=== PATIENT | male | born 1970 | race American Indian/Alaskan Native ===

== ENCOUNTER 2017-11-30 04:11 | Emergency (ER) | payer BC, MEDICAID, OTHER ==
[2017-11-30] MEDS ORDERED: Aspirin 81 MG Tab.Chew PO ONE (05:03)
[2017-11-30 05:10] LABS: ANION GAP 12.4; CHLORIDE,CL 105 mmol/L (101-111); SODIUM,NA 136 mmol/L (135-145)
--- NOTE | 2017-11-30 05:16 | EDM.PDOC ---
<Sara Deal - Last Filed: 11/30/17 08:12> ED HPI GENERAL MEDICAL PROBLEM - General Chief Complaint: Chest Pain Stated Complaint: HEART PALPITATIONS [id number] Time Seen by Provider: 11/30/17 04:20 Source of Information: Reports: Patient History Limitations: Reports: No Limitations - History of Present Illness INITIAL COMMENTS - FREE TEXT/NARRATIVE: palpitations wakening from sleep at midnight, has had for past 2 weeks increasing frequency. No SOB, epigastric radiating to mid chest. No sweats. No dizziness. Started on Losartan 2 weeks ago. New to area since May from [facility]. Now working 3 jobs, little sleep. Is being seen at [facility]. Mid-Sternal Chest Pain Score (Numeric/FACES): 9 - Related Data Allergies Allergy/AdvReac Type Severity Reaction Status Date / Time No Known Allergies Allergy Verified 11/30/17 04:19 Home Meds: Home Meds Folic Acid 1 mg PO DAILY 11/30/17 [History] Losartan [Cozaar] 12.5 mg PO DAILY 11/30/17 [History] Past Medical History HEENT History: Reports: None Cardiovascular History: Reports: Hypertension Respiratory History: Reports: None Gastrointestinal History: Reports: Cirrhosis, Colon Polyp, GI Bleed Other Gastrointestinal History: esophageal varicies Genitourinary History: Reports: None Musculoskeletal History: Reports: None Neurological History: Reports: None Psychiatric History: Reports: Addiction Endocrine/Metabolic History: Reports: None Hematologic History: Reports: None Immunologic History: Reports: None Oncologic (Cancer) History: Reports: None Dermatologic History: Reports: None - Infectious Disease History Infectious Disease History: Reports: Chicken Pox - Past Surgical History Head Surgeries/Procedures: Reports: None Social & Family History - Family History Family Medical History: Noncontributory - Tobacco Use Smoking Status *Q: Never Smoker Second Hand Smoke Exposure: No - Caffeine Use Caffeine Use: Reports: None - Recreational Drug Use Recreational Drug Use: No - Living Situation & Occupation Living situation: Reports: with Family ED ROS GENERAL - Review of Systems Review Of Systems: ROS reveals no pertinent complaints other than HPI. ED EXAM, GENERAL - Physical Exam Exam: See Below Exam Limited By: No Limitations General Appearance: Alert, No Apparent Distress, Anxious Eye Exam: Bilateral Eye: EOMI, PERRL Ears: Normal External Exam, Normal TMs Nose: Normal Inspection Throat/Mouth: Normal Inspection, Normal Lips Head: Atraumatic, Normocephalic Neck: Normal Inspection, Full Range of Motion, Lymphadenopathy (L), Lymphadenopathy (R) Respiratory/Chest: No Respiratory Distress, Lungs Clear, Normal Breath Sounds Cardiovascular: Normal Peripheral Pulses, Regular Rate, Rhythm GI/Abdominal: Normal Bowel Sounds, Soft, Tender (epigastric) Back Exam: Normal Inspection, Full Range of Motion Extremities: Normal Inspection Neurological: Alert, Oriented, Normal Cognition Psychiatric: Normal Affect, Anxious Skin Exam: Warm, Dry, Intact, Normal Color Course - Vital Signs Last Recorded V/S: Last Vital Signs Temp 37.4 C 11/30/17 07:47 Pulse 78 11/30/17 07:47 Resp 20 11/30/17 07:47 BP 138/78 11/30/17 07:47 Pulse Ox 95 11/30/17 07:47 - Orders/Labs/Meds Orders: Active Orders 24 hr Category Date Time Status EKG 12 Lead [EKG Documentation Completion] [RC] URGENT Care 11/30/17 08:40 Active EKG Documentation Completion [RC] URGENT Care 11/30/17 04:20 Active Labs: Laboratory Tests 11/30/17 11/30/17 11/30/17 Range/Units 04:45 04:45 04:45 WBC 3.0 L (5.0-10.0) 10^3/uL RBC 4.27 L (4.6-6.2) 10^6/uL Hgb 10.8 L D (14.0-18.0) g/dL Hct 34.3 L (40.0-54.0) % MCV 80.3 D (80-100) fL MCH 25.3 L (27.0-34.0) pg MCHC 31.5 L (33.0-35.0) g/dL Plt Count 58 L (150-450) 10^3/uL Neut % (Auto) 50.2 (42.2-75.2) % Lymph % (Auto) 38.6 (20.5-50.1) % [place] % (Auto) 9.5 H (2-8) % Eos % (Auto) 1.4 (1.0-3.0) % Baso % (Auto) 0.3 (0.0-1.0) % Sodium 136 (135-145) mmol/L Potassium 3.4 L (3.6-5.0) mmol/L Chloride 105 (101-111) mmol/L Carbon Dioxide 22.0 (21.0-31.0) mmol/L Anion Gap 12.4 BUN 3 L (7-18) mg/dL Creatinine 0.5 L (0.6-1.3) mg/dL Est Cr Clr Drug Dosing 188.58 mL/min Estimated GFR (MDRD) > 60 BUN/Creatinine Ratio 6.00 Glucose 175 H (74-105) mg/dL Calcium 8.1 L (8.4-10.2) mg/dl Total Bilirubin 1.1 H (0.2-1.0) mg/dL AST 70 H (10-42) IU/L ALT 38 (10-60) IU/L Alkaline Phosphatase 133 H (42-121) IU/L CK-MB (CK-2) 3.00 (0.4-4.7) ng/mL Troponin I < 0.02 (0.00-0.02) ng/ml Total Protein 8.3 H (6.7-8.2) g/dl Albumin 3.2 (3.2-5.5) g/dl Globulin 5.1 Albumin/Globulin Ratio 0.63 Amylase 62 (28-100) U/L Lipase 40 (22-51) U/L Ethyl Alcohol mg/dL 11/30/17 11/30/17 Range/Units 04:45 08:45 WBC (5.0-10.0) 10^3/uL RBC (4.6-6.2) 10^6/uL Hgb (14.0-18.0) g/dL Hct (40.0-54.0) % MCV (80-100) fL MCH (27.0-34.0) pg MCHC (33.0-35.0) g/dL Plt Count (150-450) 10^3/uL Neut % (Auto) (42.2-75.2) % Lymph % (Auto) (20.5-50.1) % [place] % (Auto) (2-8) % Eos % (Auto) (1.0-3.0) % Baso % (Auto) (0.0-1.0) % Sodium (135-145) mmol/L Potassium (3.6-5.0) mmol/L Chloride (101-111) mmol/L Carbon Dioxide (21.0-31.0) mmol/L Anion Gap BUN (7-18) mg/dL Creatinine (0.6-1.3) mg/dL Est Cr Clr Drug Dosing mL/min Estimated GFR (MDRD) BUN/Creatinine Ratio Glucose (74-105) mg/dL Calcium (8.4-10.2) mg/dl Total Bilirubin (0.2-1.0) mg/dL AST (10-42) IU/L ALT (10-60) IU/L Alkaline Phosphatase (42-121) IU/L CK-MB (CK-2) (0.4-4.7) ng/mL Troponin I < 0.02 (0.00-0.02) ng/ml Total Protein (6.7-8.2) g/dl Albumin (3.2-5.5) g/dl Globulin Albumin/Globulin Ratio Amylase (28-100) U/L Lipase (22-51) U/L Ethyl Alcohol 57 mg/dL Meds: Medications Discontinued Medications Generic Name Dose Route Start Last Admin Trade Name Freq PRN Reason Stop Dose Admin Al Hydroxide/Mg Hydroxide 30 ml 11/30/17 05:33 11/30/17 05:38 Gi Cocktail PO 11/30/17 05:34 30 ml ONETIME ONE Administration Aspirin 324 mg 11/30/17 05:03 11/30/17 05:07 Aspirin PO 11/30/17 05:04 324 mg ONETIME ONE Administration Departure - Departure Disposition: Home, Self-Care 01 Condition: Good Clinical Impression: Heart palpitations, Anxiety HTN (hypertension) Qualifiers: Hypertension type: unspecified Qualified Code(s): I10 - Essential (primary) hypertension GERD (gastroesophageal reflux disease) Qualifiers: Esophagitis presence: without esophagitis Qualified Code(s): K21.9 - Gastro- esophageal reflux disease without esophagitis Forms: ED Department Discharge Care Plan Goals: Discussed the examination, EKG, x-ray, lab, repeat EKG and repeat lab results with the patient. The patient was encouraged to follow-up with his primary care facility. If the patient has any additional symptoms or further concerns, the patient should either visit his primary care facility or return to the emergency department. <Lazaro Prieto - Last Filed: 11/30/17 09:23> Departure - Departure Time of Disposition: 09:21
[2017-11-30] MEDS ORDERED: GI Cocktail Oral Solution 30 ML PO ONE (05:33)
[2017-11-30 08:28] VITALS: BP 138/78
--- NOTE | 2017-11-30 14:11 | EKG ---
11/30/2017 - TONI ROBERTS - TIME: 08:47:00 FINDINGS: A 12-lead EKG shows normal sinus rhythm with no significant ST elevation or ST depression. Nonspecific ST-T wave changes noted on leads V1 and V2. [facility] /[id number]
--- NOTE | 2017-11-30 14:59 | EKG ---
11/30/2017- TONI ROBERTS - FINDINGS: A 12-lead EKG shows normal sinus rhythm with no significant ST elevation or ST depression. Nonspecific ST-T wave changes noted on leads V1 and V2. [facility] /[id number]
== END 2017-11-30 09:59 | disposition home or self-care (01) ==
LOC: DL.ED 04:11
DX: K21.9 Gastro-esophageal reflux disease without esophagitis (principal); R00.2 Palpitations; I10 Essential (primary) hypertension; F41.9 Anxiety disorder, unspecified
CPT/HCPCS: 36415; 71045; 80053; 82150; 82553; 83690; 84484; 85025; 93005; 93010; 99285; A9270; G0480

== ENCOUNTER 2017-12-04 20:23 | Emergency (ER) | payer OTHER ==
[2017-12-04 20:54] VITALS: BP 155/78
[2017-12-04] MEDS ORDERED: Clindamycin HCl 150 MG Cap PO ONE (21:22)
--- NOTE | 2017-12-04 21:28 | EDM.PDOC ---
ED HPI GENERAL MEDICAL PROBLEM - General Chief Complaint: Bite:Animal, Insect Stated Complaint: SCABIES? [id number] Time Seen by Provider: 12/04/17 21:23 Source of Information: Reports: Patient History Limitations: Reports: No Limitations - History of Present Illness INITIAL COMMENTS - FREE TEXT/NARRATIVE: gives few days h/o spreading sores, been using OTC cortisone and helping a bit. - Related Data Allergies Allergy/AdvReac Type Severity Reaction Status Date / Time No Known Allergies Allergy Verified 12/04/17 20:54 Home Meds: Home Meds Folic Acid 1 mg PO DAILY 11/30/17 [History] Past Medical History HEENT History: Reports: None Cardiovascular History: Reports: Hypertension Respiratory History: Reports: None Gastrointestinal History: Reports: Cirrhosis, Colon Polyp, GI Bleed Other Gastrointestinal History: esophageal varicies Genitourinary History: Reports: None Musculoskeletal History: Reports: None Neurological History: Reports: None Psychiatric History: Reports: Addiction Endocrine/Metabolic History: Reports: None Hematologic History: Reports: None Immunologic History: Reports: None Oncologic (Cancer) History: Reports: None Dermatologic History: Reports: None - Infectious Disease History Infectious Disease History: Reports: Chicken Pox - Past Surgical History Head Surgeries/Procedures: Reports: None Social & Family History - Family History Family Medical History: Noncontributory - Tobacco Use Smoking Status *Q: Never Smoker Second Hand Smoke Exposure: No - Caffeine Use Caffeine Use: Reports: None - Recreational Drug Use Recreational Drug Use: No - Living Situation & Occupation Living situation: Reports: with Family ED ROS GENERAL - Review of Systems Review Of Systems: ROS reveals no pertinent complaints other than HPI. ED EXAM, ANIMAL BITE - Physical Exam Exam: See Below Exam Limited By: No Limitations General Appearance: Alert, WD/WN, No Apparent Distress Ears: Hearing Grossly Normal Throat/Mouth: Normal Voice, No Airway Compromise Head: Atraumatic Neck: Non-Tender, Full Range of Motion Respiratory/Chest: No Respiratory Distress Cardiovascular: Regular Rate, Rhythm GI/Abdominal: Soft, Non-Tender Neurological: Alert, Oriented, Normal Cognition, Normal Gait, No Motor/Sensory Deficits Psychiatric: Normal Affect, Normal Mood Skin Exam: Normal Color, Warm/Dry, Other (scatttered areas of some solitary some confluent erythematous rash in varying sizes 1/2" to 1" on arm & legs) Course - Vital Signs Last Recorded V/S: Last Vital Signs Temp 37.1 C 12/04/17 20:51 Pulse 97 12/04/17 20:51 Resp 18 12/04/17 20:51 BP 155/78 H 12/04/17 20:51 Pulse Ox 97 12/04/17 20:51 - Orders/Labs/Meds Orders: Active Orders 24 hr Category Date Time Status Clindamycin HCl [Cleocin] Med 12/04/17 21:22 Once 150 mg PO ONETIME ONE Departure - Departure Time of Disposition: 21:28 Disposition: Home, Self-Care 01 Condition: Good Clinical Impression: Bug bite Qualifiers: Encounter type: initial encounter Qualified Code(s): W57.XXXA - Bitten or stung by nonvenomous insect and other nonvenomous arthropods, initial encounter - Discharge Information Instructions: Insect Bite, Adult, [id number] Additional Instructions: 1) don't scratch 2) continue cortisone cream 3) see clinic tomorrow for DERMATOLOGY REFERRAL rx given; clindamycin 150mg qid x 40 - My Orders Last 24 Hours: My Active Orders 12/04/17 21:22 Clindamycin HCl [Cleocin] 150 mg PO ONETIME ONE - Assessment/Plan Last 24 Hours: My Active Orders 12/04/17 21:22 Clindamycin HCl [Cleocin] 150 mg PO ONETIME ONE
== END 2017-12-04 21:33 | disposition home or self-care (01) ==
LOC: DL.ED 20:23
DX: S40.862A Insect bite (nonvenomous) of left upper arm, initial encounter (principal); S40.861A Insect bite (nonvenomous) of right upper arm, initial encounter; S80.862A Insect bite (nonvenomous), left lower leg, initial encounter; S80.861A Insect bite (nonvenomous), right lower leg, initial encounter; W57.XXXA Bitten or stung by nonvenomous insect and other nonvenomous arthropods, initial encounter; I10 Essential (primary) hypertension
CPT/HCPCS: 99282; A9270; 99283

== ENCOUNTER 2018-01-13 07:34 | Emergency (ER) | payer OTHER ==
[2018-01-13] MEDS ORDERED: Sodium Chloride 0.9% 1,000 ML IV SCH (07:45)
[2018-01-13] MEDS ORDERED: Pantoprazole 40 MG Vial IVPUSH ONE (07:45)
[2018-01-13] MEDS ORDERED: Ondansetron 4 MG/2 ML SDV IV ONE (07:45)
[2018-01-13 07:48] VITALS: BP 141/85
[2018-01-13 08:18] LABS: ANION GAP 14.2; CHLORIDE,CL 99 mmol/L (101-111); SODIUM,NA 134 mmol/L (135-145)
--- NOTE | 2018-01-13 08:23 | EDM.PDOC ---
ED HPI GENERAL MEDICAL PROBLEM - General Chief Complaint: Chest Pain Stated Complaint: VOMITTING BLOOD, HEART HURTS Time Seen by Provider: 01/13/18 08:05 Source of Information: Reports: Patient History Limitations: Reports: No Limitations - History of Present Illness INITIAL COMMENTS - FREE TEXT/NARRATIVE: This 47 yo male patient reports to the ED due to right sided chest pain for 1 week, not feeling well, and vomiting blood this morning. The patient reports that he has not attempted to get into his primary care facility for the chest pain. The patient reports the not feeling well could be due to a diffuse upper abdominal pain. The patient report that his upper abdominal pain has stopped him from eating much in the past week. The patient also reports that he has had increased stress in his life due to his great uncle passing away. The patient reports that he vomited some "red" blood this morning. The patient states that he has been seen for varices in the past. The patient admits to drinking some ETOH this past week. The patient reports that he has a history of esophageal varices, liver problems, and low platelet counts. The patient reports that he is supposed to be seen in [place] to look for any evidence of Rheumatoid. Onset: Today (vomiting blood) Duration: Week(s): (1 week of chest pain/pressure) Location: Reports: Chest, Abdomen Quality: Reports: Ache (upper abdomen), Dull, Pressure (chest) Severity: Moderate Improves with: Reports: None Worsens with: Reports: None Associated Symptoms: Reports: Cough, Nausea/Vomiting Chest Pain Score (Numeric/FACES): 8 - Related Data Allergies Allergy/AdvReac Type Severity Reaction Status Date / Time No Known Allergies Allergy Verified 01/13/18 07:42 Home Meds: Home Meds Cholecalciferol (Vitamin D3) [Vitamin D] 5,000 unit PO DAILY 01/13/18 [History] amLODIPine Besylate [Amlodipine Besylate] 5 mg PO DAILY 01/13/18 [History] Past Medical History HEENT History: Reports: None Cardiovascular History: Reports: Hypertension Respiratory History: Reports: None Gastrointestinal History: Reports: Cirrhosis, Colon Polyp, GI Bleed Other Gastrointestinal History: esophageal varicies Genitourinary History: Reports: None Musculoskeletal History: Reports: None Neurological History: Reports: None Psychiatric History: Reports: Addiction Endocrine/Metabolic History: Reports: None Hematologic History: Reports: Anemia Immunologic History: Reports: None Oncologic (Cancer) History: Reports: None Dermatologic History: Reports: None - Infectious Disease History Infectious Disease History: Reports: Chicken Pox, Hepatitis C - Past Surgical History Head Surgeries/Procedures: Reports: None Social & Family History - Family History Family Medical History: Noncontributory - Tobacco Use Smoking Status *Q: Never Smoker - Caffeine Use Caffeine Use: Reports: None - Recreational Drug Use Recreational Drug Use: No - Living Situation & Occupation Living situation: Reports: with Family ED ROS GENERAL - Review of Systems Review Of Systems: ROS reveals no pertinent complaints other than HPI. ED EXAM, GENERAL - Physical Exam Exam: See Below Exam Limited By: No Limitations General Appearance: Alert, WD/WN, Moderate Distress Eye Exam: Bilateral Eye: EOMI, Normal Inspection, PERRL Ears: Normal External Exam, Normal Canal, Hearing Grossly Normal, Normal TMs Nose: Normal Inspection, Normal Mucosa, No Blood Throat/Mouth: Normal Inspection, Normal Lips, Normal Teeth, Normal Gums, Normal Oropharynx, Normal Voice, No Airway Compromise Head: Atraumatic, Normocephalic Neck: Normal Inspection, Supple, Non-Tender, Full Range of Motion Respiratory/Chest: No Respiratory Distress, No Accessory Muscle Use, Chest Non- Tender, Decreased Breath Sounds, Rhonchi Cardiovascular: Normal Peripheral Pulses, Regular Rate, Rhythm, No Edema, No Gallop, No JVD, No Murmur, No Rub GI/Abdominal: Tender (upper abdomen) (Male) Exam: Deferred Rectal (Males) Exam: Deferred Back Exam: Normal Inspection, Full Range of Motion, NT Extremities: Normal Inspection, Normal Range of Motion, Non-Tender, Normal Capillary Refill, No Pedal Edema Neurological: Alert, Oriented, CN II-XII Intact, Normal Cognition, Normal Gait, Normal Reflexes, No Motor/Sensory Deficits Psychiatric: Normal Affect, Normal Mood Skin Exam: Warm, Dry, Intact, Normal Color, No Rash Lymphatic: No Adenopathy Course - Vital Signs Last Recorded V/S: Last Vital Signs Temp 37.1 C 01/13/18 07:44 Pulse 94 01/13/18 07:44 Resp 16 01/13/18 07:44 BP 141/85 H 01/13/18 07:44 Pulse Ox 99 01/13/18 07:44 - Orders/Labs/Meds Orders: Active Orders 24 hr Category Date Time Status EKG Documentation Completion [RC] URGENT Care 01/13/18 07:39 Active Chest 1V Frontal [CR] Urgent Exams 01/13/18 07:39 Ordered UA W/MICROSCOPIC [URIN] Stat Lab 01/13/18 07:39 Ordered Sodium Chloride 0.9% [Normal Saline] 1,000 ml Med 01/13/18 07:45 Active IV ASDIRECTED Medication Orders Sodium Chloride (Normal Saline) 1,000 mls @ 125 mls/hr IV ASDIRECTED DENYS Last Admin: 01/13/18 08:17 Dose: 125 mls/hr Labs: Laboratory Tests 01/13/18 01/13/18 01/13/18 Range/Units 07:50 07:50 07:50 WBC 3.7 L (5.0-10.0) 10^3/uL RBC 4.16 L (4.6-6.2) 10^6/uL Hgb 10.9 L (14.0-18.0) g/dL Hct 33.5 L (40.0-54.0) % MCV 80.5 (80-100) fL MCH 26.2 L (27.0-34.0) pg MCHC 32.5 L (33.0-35.0) g/dL Plt Count 38 L* (150-450) 10^3/uL Neut % (Auto) 57.5 (42.2-75.2) % Lymph % (Auto) 32.8 (20.5-50.1) % [place] % (Auto) 8.1 H (2-8) % Eos % (Auto) 1.3 (1.0-3.0) % Baso % (Auto) 0.3 (0.0-1.0) % Sodium (135-145) mmol/L Potassium (3.6-5.0) mmol/L Chloride (101-111) mmol/L Carbon Dioxide (21.0-31.0) mmol/L Anion Gap BUN (7-18) mg/dL Creatinine (0.6-1.3) mg/dL Est Cr Clr Drug Dosing mL/min Estimated GFR (MDRD) BUN/Creatinine Ratio Glucose (74-105) mg/dL Calcium (8.4-10.2) mg/dl Total Bilirubin (0.2-1.0) mg/dL AST (10-42) IU/L ALT (10-60) IU/L Alkaline Phosphatase (42-121) IU/L Ammonia 101 H (11-35) umol/L Troponin I (0.00-0.02) ng/ml Total Protein (6.7-8.2) g/dl Albumin (3.2-5.5) g/dl Globulin Albumin/Globulin Ratio Amylase 64 (28-100) U/L Lipase 56 H (22-51) U/L Urine Opiates Screen (NEGATIVE) Ur Oxycodone Screen (NEGATIVE) Urine Methadone Screen (NEGATIVE) Ur Barbiturates Screen (NEGATIVE) U Tricyclic Antidepress (NEGATIVE) Ur Phencyclidine Scrn (NEGATIVE) Ur Amphetamine Screen (NEGATIVE) U Methamphetamines Scrn (NEGATIVE) Urine MDMA Screen (NEGATIVE) U Benzodiazepines Scrn (NEGATIVE) Urine Cocaine Screen (NEGATIVE) U Marijuana (THC) Screen (NEGATIVE) Ethyl Alcohol 94 mg/dL 01/13/18 01/13/18 Range/Units 07:50 09:00 WBC (5.0-10.0) 10^3/uL RBC (4.6-6.2) 10^6/uL Hgb (14.0-18.0) g/dL Hct (40.0-54.0) % MCV (80-100) fL MCH (27.0-34.0) pg MCHC (33.0-35.0) g/dL Plt Count (150-450) 10^3/uL Neut % (Auto) (42.2-75.2) % Lymph % (Auto) (20.5-50.1) % [place] % (Auto) (2-8) % Eos % (Auto) (1.0-3.0) % Baso % (Auto) (0.0-1.0) % Sodium 134 L (135-145) mmol/L Potassium 3.2 L (3.6-5.0) mmol/L Chloride 99 L (101-111) mmol/L Carbon Dioxide 24.0 (21.0-31.0) mmol/L Anion Gap 14.2 BUN 5 L (7-18) mg/dL Creatinine 0.6 (0.6-1.3) mg/dL Est Cr Clr Drug Dosing 157.15 mL/min Estimated GFR (MDRD) > 60 BUN/Creatinine Ratio 8.33 Glucose 179 H (74-105) mg/dL Calcium 7.8 L (8.4-10.2) mg/dl Total Bilirubin 2.2 H (0.2-1.0) mg/dL AST 221 H (10-42) IU/L ALT 79 H (10-60) IU/L Alkaline Phosphatase 175 H (42-121) IU/L Ammonia (11-35) umol/L Troponin I < 0.02 (0.00-0.02) ng/ml Total Protein 8.4 H (6.7-8.2) g/dl Albumin 3.2 (3.2-5.5) g/dl Globulin 5.2 Albumin/Globulin Ratio 0.62 Amylase (28-100) U/L Lipase (22-51) U/L Urine Opiates Screen Negative (NEGATIVE) Ur Oxycodone Screen Negative (NEGATIVE) Urine Methadone Screen Negative (NEGATIVE) Ur Barbiturates Screen Negative (NEGATIVE) U Tricyclic Antidepress Negative (NEGATIVE) Ur Phencyclidine Scrn Negative (NEGATIVE) Ur Amphetamine Screen Negative (NEGATIVE) U Methamphetamines Scrn Negative (NEGATIVE) Urine MDMA Screen Negative (NEGATIVE) U Benzodiazepines Scrn Negative (NEGATIVE) Urine Cocaine Screen Negative (NEGATIVE) U Marijuana (THC) Screen Negative (NEGATIVE) Ethyl Alcohol mg/dL Meds: Medications Generic Name Dose Route Start Last Admin Trade Name Freq PRN Reason Stop Dose Admin Sodium Chloride 1,000 mls @ 125 mls/hr 01/13/18 07:45 01/13/18 08:17 Normal Saline IV 125 mls/hr ASDIRECTED DENYS Administration Discontinued Medications Generic Name Dose Route Start Last Admin Trade Name Freq PRN Reason Stop Dose Admin Ondansetron HCl 4 mg 01/13/18 07:45 01/13/18 08:18 Zofran IV 01/13/18 07:46 4 mg ONETIME ONE Administration Pantoprazole Sodium 40 mg 01/13/18 07:45 01/13/18 08:18 Protonix Iv IVPUSH 01/13/18 07:46 40 mg ONETIME ONE Administration Departure - Departure Time of Disposition: : Disposition: DC/Tfer to Acute Hospital 02 Condition: Fair Clinical Impression: Chest pressure Hematemesis Qualifiers: Nausea presence: with nausea Qualified Code(s): K92.0 - Hematemesis - Discharge Information *PRESCRIPTION DRUG MONITORING PROGRAM REVIEWED*: Not Applicable *COPY OF PRESCRIPTION DRUG MONITORING REPORT IN PATIENT AMNA: Not Applicable Forms: Interfacility Transfer EMTALA Care Plan Goals: Discussed the examination, history, lab, EKG and x-ray results with Dr. Smith ( [facility] in [place]). Dr. Smith accepted the patient for continued evaluation and further treatment. The patient will be transported by [facility]. - My Orders Last 24 Hours: My Active Orders 01/13/18 07:39 EKG Documentation Completion [RC] URGENT Chest 1V Frontal [CR] Urgent UA W/MICROSCOPIC [URIN] Stat 01/13/18 07:45 Sodium Chloride 0.9% [Normal Saline] 1,000 ml IV ASDIRECTED - Assessment/Plan Last 24 Hours: My Active Orders 01/13/18 07:39 EKG Documentation Completion [RC] URGENT Chest 1V Frontal [CR] Urgent UA W/MICROSCOPIC [URIN] Stat 01/13/18 07:45 Sodium Chloride 0.9% [Normal Saline] 1,000 ml IV ASDIRECTED
--- NOTE | 2018-01-13 09:28 | CR ---
Clinical history: 47-year-old male chest pain. Interpretation: No acute new cardiopulmonary abnormality since upright AP portable chest film 30 November 2017. 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 Mild scoliosis and ectasia dorsal aorta. No lung mass, hilar lymphadenopathy or focal lobar pneumonia.
== END 2018-01-13 09:55 ==
LOC: DL.ED 07:34
DX: R07.89 Other chest pain (principal); K92.0 Hematemesis; I10 Essential (primary) hypertension; Z79.899 Other long term (current) drug therapy
CPT/HCPCS: 36415; 71045; 80053; 80305; 81001; 82140; 82150; 83690; 84484; 85025; 85610; 93005; 96361; 96374; 96375; 99285; C9113; G0480; J2405; J7030; 99284

== ENCOUNTER 2019-01-21 07:04 | Emergency (ER) | payer OTHER ==
[2019-01-21] MEDS ORDERED: Sodium Chloride 0.9% 10 ML Syringe FLUSH PRN (07:15)
[2019-01-21] MEDS ORDERED: Ondansetron 4 MG/2 ML SDV IV ONE (07:21)
[2019-01-21] MEDS ORDERED: Sodium Chloride 0.9% 1,000 ML IV ONE (07:21)
[2019-01-21] MEDS ORDERED: Pantoprazole 40 MG Vial IVPUSH ONE (07:21)
--- NOTE | 2019-01-21 07:22 | EDM.PDOC ---
ED HPI GENERAL MEDICAL PROBLEM - General Chief Complaint: Gastrointestinal Problem Stated Complaint: VOMITING BLOOD Time Seen by Provider: 01/21/19 07:22 Source of Information: Reports: Patient, Old Records, RN, RN Notes Reviewed History Limitations: Reports: No Limitations - History of Present Illness INITIAL COMMENTS - FREE TEXT/NARRATIVE: Pt presents to ER from home by POV with c/o nausea with upper abdominal pain and vomiting of bloody emesis. Pt states that he is under a great deal of stress at his job and has been working long hours. He was seen here on 01/13/19 for an upper GI bleed and was transferred to [facility] in [place]. Pt states he has had both blood in his emesis and some intermittent black stools. He states he has not been able to eat or drink much for the past 2 days. He admits to 3 weeks of bloody noses and dizziness. Pt reports Hx of cirrhosis with esophageal varices, but he still drinks wine about twice a week. Pt states he is here primarily so he can be transferred to [facility] in [place]. Onset: Today Duration: Chronic, Constant, Recurring Location: Reports: Abdomen Quality: Reports: Ache Severity: Moderate Improves with: Reports: None Worsens with: Reports: None Associated Symptoms: Reports: No Other Symptoms Left Abdominal Pain Score (Numeric/FACES): 8 - Related Data Allergies Allergy/AdvReac Type Severity Reaction Status Date / Time No Known Allergies Allergy Verified 01/13/18 07:42 Home Meds: Home Meds Cholecalciferol (Vitamin D3) [Vitamin D] 5,000 unit PO DAILY 01/13/18 [History] amLODIPine Besylate [Amlodipine Besylate] 5 mg PO DAILY 01/13/18 [History] Past Medical History HEENT History: Reports: None Cardiovascular History: Reports: Hypertension Respiratory History: Reports: None Gastrointestinal History: Reports: Cirrhosis, Colon Polyp, GI Bleed Other Gastrointestinal History: esophageal varicies Genitourinary History: Reports: None Musculoskeletal History: Reports: None Neurological History: Reports: None Psychiatric History: Reports: Addiction Endocrine/Metabolic History: Reports: None Hematologic History: Reports: Anemia Immunologic History: Reports: None Oncologic (Cancer) History: Reports: None Dermatologic History: Reports: None - Infectious Disease History Infectious Disease History: Reports: Chicken Pox, Hepatitis C - Past Surgical History Head Surgeries/Procedures: Reports: None Social & Family History - Family History Family Medical History: Noncontributory - Caffeine Use Caffeine Use: Reports: None - Living Situation & Occupation Living situation: Reports: with Family Occupation: Employed ED ROS GENERAL - Review of Systems Review Of Systems: ROS reveals no pertinent complaints other than HPI. ED EXAM, GI/ABD - Physical Exam Exam: See Below Exam Limited By: No Limitations General Appearance: Alert, No Apparent Distress, Other (Chronically ill appearing) Eyes: Bilateral: Normal Appearance (No scleral icterus) Nose: Normal Inspection, Normal Mucosa, No Blood Throat/Mouth: Normal Inspection, Normal Lips, Normal Voice, No Airway Compromise Head: Atraumatic, Normocephalic Neck: Normal Inspection, Full Range of Motion Respiratory/Chest: No Respiratory Distress, Lungs Clear, No Accessory Muscle Use , Chest Non-Tender, Decreased Breath Sounds Cardiovascular: Regular Rate, Rhythm GI/Abdominal Exam: Normal Bowel Sounds, Soft, No Distention, Tender (Epigastric tenderness). No: Guarding, Rigid, Rebound (Male) Exam: Deferred Rectal (Males) Exam: Heme - Stool Back Exam: Normal Inspection Extremities: Normal Inspection, Normal Range of Motion, Non-Tender, No Pedal Edema, Normal Capillary Refill Neurological: Alert, Oriented, CN II-XII Intact, Normal Cognition, No Motor/ Sensory Deficits Psychiatric: Normal Affect, Normal Mood Skin Exam: Warm, Dry, Intact, Normal Color, No Rash EKG INTERPRETATION EKG Date: 01/21/19 Time: 07:11 Rhythm: Other (SR) Rate (Beats/Min): 97 [place]: Normal P-Wave: Present QRS: Wide (nonspecific IVCD) ST-T: Normal QT: Normal Comparison: NA - No Prior EKG Course - Vital Signs Last Recorded V/S: Last Vital Signs Temp 98.6 F 01/21/19 07:16 Pulse Resp 18 01/21/19 07:16 BP 186/107 H 01/21/19 07:16 Pulse Ox 96 01/21/19 07:16 - Orders/Labs/Meds Orders: Active Orders 24 hr Category Date Time Status EKG 12 Lead [EKG Documentation Completion] [RC] STAT Care 01/21/19 07:13 Active Peripheral IV Care [RC] . DIRECTED Care 01/21/19 07:15 Active Chest 1V Frontal [CR] Stat Exams 01/21/19 07:13 Ordered DRUG SCREEN URINE BIORAD [URCHEM] Stat Lab 01/21/19 07:14 Ordered UA RFX SAMI AND CULT IF INDIC [URIN] Stat Lab 01/21/19 07:15 Ordered Sodium Chloride 0.9% [Normal Saline] 1,000 ml Med 01/21/19 07:21 Active IV .BOLUS Sodium Chloride 0.9% [Saline Flush] Med 01/21/19 07:15 Active 10 ml FLUSH ASDIRECTED PRN Peripheral IV Insertion Adult [OM.PC] Stat Oth 01/21/19 07:13 Ordered Medication Orders Sodium Chloride (Normal Saline) 1,000 mls @ 999 mls/hr IV .BOLUS ONE Stop: 01/21/19 08:21 Last Admin: 01/21/19 07:32 Dose: 999 mls/hr Sodium Chloride (Saline Flush) 10 ml FLUSH ASDIRECTED PRN PRN Reason: Keep Vein Open Last Admin: 01/21/19 07:32 Dose: 10 ml Labs: Laboratory Tests 01/21/19 01/21/19 01/21/19 Range/Units 07:17 07:19 07:19 WBC 4.7 L (5.0-10.0) 10^3/uL RBC 4.54 L (4.6-6.2) 10^6/uL Hgb 14.8 D (14.0-18.0) g/dL Hct 43.3 (40.0-54.0) % MCV 95.4 D (80-100) fL MCH 32.6 (27.0-34.0) pg MCHC 34.2 (33.0-35.0) g/dL Plt Count 62 L (150-450) 10^3/uL Neut % (Auto) 39.0 L (42.2-75.2) % Lymph % (Auto) 47.1 (20.5-50.1) % [place] % (Auto) 11.6 H (2-8) % Eos % (Auto) 1.7 (1.0-3.0) % Baso % (Auto) 0.6 (0.0-1.0) % PT 12.7 H (9.0-12.0) SEC INR 1.3 H (0.9-1.2) APTT 31.2 (22.0-34.0) SEC Sodium 138 (135-145) mmol/L Potassium 3.3 L (3.6-5.0) mmol/L Chloride 106 (101-111) mmol/L Carbon Dioxide 22.0 (21.0-31.0) mmol/L Anion Gap 13.3 BUN 4 L (7-18) mg/dL Creatinine 0.5 L (0.6-1.3) mg/dL Est Cr Clr Drug Dosing 189.49 mL/min Estimated GFR (MDRD) > 60 BUN/Creatinine Ratio 8.00 Glucose 182 H (74-105) mg/dL Calcium 7.5 L (8.4-10.2) mg/dl Total Bilirubin 2.3 H (0.2-1.0) mg/dL AST 143 H (10-42) IU/L ALT 57 (10-60) IU/L Alkaline Phosphatase 160 H (42-121) IU/L Ammonia (11-35) umol/L Troponin I < 0.02 (0.00-0.02) ng/ml Total Protein 8.8 H (6.7-8.2) g/dl Albumin 3.0 L (3.2-5.5) g/dl Globulin 5.8 Albumin/Globulin Ratio 0.52 Amylase 96 (28-100) U/L Lipase 88 H (22-51) U/L 01/21/19 Range/Units 07:19 WBC (5.0-10.0) 10^3/uL RBC (4.6-6.2) 10^6/uL Hgb (14.0-18.0) g/dL Hct (40.0-54.0) % MCV (80-100) fL MCH (27.0-34.0) pg MCHC (33.0-35.0) g/dL Plt Count (150-450) 10^3/uL Neut % (Auto) (42.2-75.2) % Lymph % (Auto) (20.5-50.1) % [place] % (Auto) (2-8) % Eos % (Auto) (1.0-3.0) % Baso % (Auto) (0.0-1.0) % PT (9.0-12.0) SEC INR (0.9-1.2) APTT (22.0-34.0) SEC Sodium (135-145) mmol/L Potassium (3.6-5.0) mmol/L Chloride (101-111) mmol/L Carbon Dioxide (21.0-31.0) mmol/L Anion Gap BUN (7-18) mg/dL Creatinine (0.6-1.3) mg/dL Est Cr Clr Drug Dosing mL/min Estimated GFR (MDRD) BUN/Creatinine Ratio Glucose (74-105) mg/dL Calcium (8.4-10.2) mg/dl Total Bilirubin (0.2-1.0) mg/dL AST (10-42) IU/L ALT (10-60) IU/L Alkaline Phosphatase (42-121) IU/L Ammonia 50 H (11-35) umol/L Troponin I (0.00-0.02) ng/ml Total Protein (6.7-8.2) g/dl Albumin (3.2-5.5) g/dl Globulin Albumin/Globulin Ratio Amylase (28-100) U/L Lipase (22-51) U/L Meds: Medications Generic Name Dose Route Start Last Admin Trade Name Freq PRN Reason Stop Dose Admin Sodium Chloride 1,000 mls @ 999 mls/hr 01/21/19 07:21 01/21/19 07:32 Normal Saline IV 01/21/19 08:21 999 mls/hr .BOLUS ONE Administration Sodium Chloride 10 ml 01/21/19 07:15 01/21/19 07:32 Saline Flush FLUSH 10 ml ASDIRECTED PRN Administration Keep Vein Open Discontinued Medications Generic Name Dose Route Start Last Admin Trade Name Freq PRN Reason Stop Dose Admin Ondansetron HCl 4 mg 01/21/19 07:21 01/21/19 07:29 Zofran IV 01/21/19 07:22 4 mg ONETIME ONE Administration Pantoprazole Sodium 80 mg 01/21/19 07:21 01/21/19 07:27 Protonix Iv IVPUSH 01/21/19 07:22 80 mg .BOLUS ONE Administration - Radiology Interpretation Free Text/Narrative:: [facility] [place] [facility] Final Radiology Report Call: [phone] assistance Online chat: [email or web address] Name: TONI ROBERTS Age: 48Years M Date: 01/21/2019 SSN: -- : [id number] Study: XR CHEST 1 VIEW FRONTAL Requesting Physician: YOVANI PERKINS Images: 1 Addl Studies: Provided Clinical History: Contrast: Contrast Medium: Contrast Amount: Contrast Method: CONFIDENTIALITY STATEMENT This report is intended only for use by the referring physician, and only in accordance with law. If you received this in error, call [phone]. Page 1 of 1 PROCEDURE INFORMATION: Exam: XR Chest, 1 View Exam date and time: 01/21/2019 7:39 AM Clinical history: 48 years old, male; Chest pain TECHNIQUE: Imaging protocol: XR of the chest Views: 1 view. COMPARISON: CR Chest 1V Frontal 01/13/2018 8:12 AM FINDINGS: Lungs: Mid inspiratory effort with resultant low lung volumes. No confluent infiltrates are visualized within the pulmonary parenchyma. Pleural space: Unremarkable. No pleural effusion. No pneumothorax. Heart/Mediastinum: Unremarkable. No cardiomegaly. Bones/joints: Unremarkable. IMPRESSION: No acute findings. Thank you for allowing us to participate in the care of your patient. Dictated and Authenticated by: Momo Hay MD 01/21/2019 7:58 AM Central Time ([place] & [place]) Departure - Departure Time of Disposition: 08:08 Disposition: Home, Self-Care 01 Condition: Good Clinical Impression: Gastritis Qualifiers: Gastritis type: unspecified gastritis Chronicity: acute Gastritis bleeding: without bleeding Qualified Code(s): K29.00 - Acute gastritis without bleeding - Discharge Information *PRESCRIPTION DRUG MONITORING PROGRAM REVIEWED*: Not Applicable *COPY OF PRESCRIPTION DRUG MONITORING REPORT IN PATIENT AMNA: Not Applicable Instructions: Gastritis, Adult, [id number] Forms: ED Department Discharge Additional Instructions: Rx: Omeprazole 20mg Rx: Zofran 4mg Soft bland diet. Avoid spicy foods and alcohol. Follow up in clinic in 2 to 3 days for recheck. - My Orders Last 24 Hours: My Active Orders 01/21/19 07:13 EKG 12 Lead [EKG Documentation Completion] [RC] STAT Chest 1V Frontal [CR] Stat Peripheral IV Insertion Adult [OM.PC] Stat 01/21/19 07:14 DRUG SCREEN URINE BIORAD [URCHEM] Stat 01/21/19 07:15 Peripheral IV Care [RC] . DIRECTED UA RFX SAMI AND CULT IF INDIC [URIN] Stat Sodium Chloride 0.9% [Saline Flush] 10 ml FLUSH ASDIRECTED PRN 01/21/19 07:21 Sodium Chloride 0.9% [Normal Saline] 1,000 ml IV .BOLUS - Assessment/Plan Last 24 Hours: My Active Orders 01/21/19 07:13 EKG 12 Lead [EKG Documentation Completion] [RC] STAT Chest 1V Frontal [CR] Stat Peripheral IV Insertion Adult [OM.PC] Stat 01/21/19 07:14 DRUG SCREEN URINE BIORAD [URCHEM] Stat 01/21/19 07:15 Peripheral IV Care [RC] . DIRECTED UA RFX SAMI AND CULT IF INDIC [URIN] Stat Sodium Chloride 0.9% [Saline Flush] 10 ml FLUSH ASDIRECTED PRN 01/21/19 07:21 Sodium Chloride 0.9% [Normal Saline] 1,000 ml IV .BOLUS
[2019-01-21 07:24] VITALS: BP 186/107
[2019-01-21 07:50] LABS: ANION GAP 13.3; CHLORIDE,CL 106 mmol/L (101-111); SODIUM,NA 138 mmol/L (135-145)
== END 2019-01-21 08:16 | disposition home or self-care (01) ==
LOC: DL.ED 07:04
DX: K29.00 Acute gastritis without bleeding (principal); I10 Essential (primary) hypertension; Z79.899 Other long term (current) drug therapy
CPT/HCPCS: 36415; 71045; 80053; 82140; 82150; 82272; 83690; 84484; 85025; 85610; 85730; 93005; 96365; 96375; 99284; C9113; J2405; J7030

== ENCOUNTER 2019-01-30 14:27 | Emergency (ER) | payer OTHER ==
[2019-01-30 14:48] VITALS: BP 107/89; PULSE 97
--- NOTE | 2019-01-30 15:09 | EDM.PDOC ---
ED HPI GENERAL MEDICAL PROBLEM - General Stated Complaint: LOSS OF BLOOD Time Seen by Provider: 01/30/19 15:04 Source of Information: Reports: Patient History Limitations: Reports: No Limitations - History of Present Illness INITIAL COMMENTS - FREE TEXT/NARRATIVE: This 48 yo male patient reports to the ED due to blood in his stool. The patient reports he has been having bloody stools all day today (going from bright red blood to dark red blood). The patient reports he has been experiencing increased stress at work and has been very tired lately. The patient reports he does drink wine, but has not had any in the past 2 days. The patient reports he has a primary provider in [facility], but he has not seen her in the past year. The patient was seen in the ED several times over the past 2 weeks and was sent to [facility] once due to an upper GI bleed. Onset: Today Duration: Constant Location: Reports: Other Quality: Reports: Other Severity: Moderate Improves with: Reports: None Worsens with: Reports: None Associated Symptoms: Reports: No Other Symptoms Abdominal Pain Score (Numeric/FACES): 10 - Related Data Allergies Allergy/AdvReac Type Severity Reaction Status Date / Time No Known Allergies Allergy Verified 01/13/18 07:42 Home Meds: Home Meds Cholecalciferol (Vitamin D3) [Vitamin D] 5,000 unit PO DAILY 01/13/18 [History] amLODIPine Besylate [Amlodipine Besylate] 5 mg PO DAILY 01/13/18 [History] Past Medical History HEENT History: Reports: None Cardiovascular History: Reports: Hypertension Respiratory History: Reports: None Gastrointestinal History: Reports: Cirrhosis, Colon Polyp, GI Bleed Other Gastrointestinal History: esophageal varicies Genitourinary History: Reports: None Musculoskeletal History: Reports: None Neurological History: Reports: None Psychiatric History: Reports: Addiction Endocrine/Metabolic History: Reports: None Hematologic History: Reports: Anemia Immunologic History: Reports: None Oncologic (Cancer) History: Reports: None Dermatologic History: Reports: None - Infectious Disease History Infectious Disease History: Reports: Chicken Pox, Hepatitis C - Past Surgical History Head Surgeries/Procedures: Reports: None Social & Family History - Family History Family Medical History: Noncontributory - Caffeine Use Caffeine Use: Reports: None - Living Situation & Occupation Living situation: Reports: with Family Occupation: Employed ED ROS GENERAL - Review of Systems Review Of Systems: ROS reveals no pertinent complaints other than HPI. ED EXAM, GI/ABD - Physical Exam Exam: See Below Exam Limited By: No Limitations General Appearance: Alert, WD/WN, Moderate Distress Eyes: Bilateral: Normal Appearance, EOMI Ears: Normal External Exam, Normal Canal, Hearing Grossly Normal, Normal TMs Nose: Normal Inspection, Normal Mucosa, No Blood Throat/Mouth: Normal Inspection, Normal Lips, Normal Teeth, Normal Gums, Normal Oropharynx, Normal Voice, No Airway Compromise Head: Atraumatic, Normocephalic Neck: Normal Inspection, Supple, Non-Tender, Full Range of Motion Respiratory/Chest: No Respiratory Distress, Lungs Clear, Normal Breath Sounds, No Accessory Muscle Use, Chest Non-Tender Cardiovascular: Normal Peripheral Pulses, Regular Rate, Rhythm, No Edema, No Gallop, No JVD, No Murmur, No Rub GI/Abdominal Exam: Normal Bowel Sounds, Soft, No Organomegaly, No Distention, No Abnormal Bruit, No Mass, Pelvis Stable, Tender (diffuse) Rectal (Males) Exam: Normal Exam, Normal Rectal Tone, Prostate Normal Back Exam: Normal Inspection, Full Range of Motion, NT Extremities: Normal Inspection, Normal Range of Motion, Non-Tender, Normal Capillary Refill, No Pedal Edema Neurological: Alert, Oriented, CN II-XII Intact, Normal Cognition, Normal Gait, Normal Reflexes, No Motor/Sensory Deficits Psychiatric: Normal Affect, Normal Mood Skin Exam: Warm, Dry, Intact, Normal Color, No Rash Lymphatic: No Adenopathy Course - Vital Signs Last Recorded V/S: Last Vital Signs Temp 37.2 C 01/30/19 14:34 Pulse 97 01/30/19 14:34 Resp 18 01/30/19 14:34 BP 107/89 01/30/19 14:34 Pulse Ox 94 L 01/30/19 14:34 - Orders/Labs/Meds Orders: Active Orders 24 hr Category Date Time Status CULTURE BLOOD [BC] Stat Lab 01/30/19 15:12 Received Labs: Laboratory Tests 01/30/19 01/30/19 01/30/19 Range/Units 15:12 15:12 15:12 WBC 4.7 L (5.0-10.0) 10^3/uL RBC 4.10 L (4.6-6.2) 10^6/uL Hgb 13.3 L D (14.0-18.0) g/dL Hct 38.1 L (40.0-54.0) % MCV 92.9 (80-100) fL MCH 32.4 (27.0-34.0) pg MCHC 34.9 (33.0-35.0) g/dL Plt Count 23 L* (150-450) 10^3/uL Neut % (Auto) 69.4 (42.2-75.2) % Lymph % (Auto) 23.2 (20.5-50.1) % [place] % (Auto) 6.8 (2-8) % Eos % (Auto) 0.2 L (1.0-3.0) % Baso % (Auto) 0.4 (0.0-1.0) % Sodium 135 (135-145) mmol/L Potassium 3.3 L (3.6-5.0) mmol/L Chloride 97 L (101-111) mmol/L Carbon Dioxide 21.0 (21.0-31.0) mmol/L Anion Gap 20.3 BUN 6 L (7-18) mg/dL Creatinine 0.6 (0.6-1.3) mg/dL Est Cr Clr Drug Dosing 155.46 mL/min Estimated GFR (MDRD) > 60 BUN/Creatinine Ratio 10.00 Glucose 135 H (74-105) mg/dL Lactic Acid 5.0 H (0.5-2.2) mmol/L Calcium 7.6 L (8.4-10.2) mg/dl Total Bilirubin 4.2 H (0.2-1.0) mg/dL AST 233 H (10-42) IU/L ALT 76 H (10-60) IU/L Alkaline Phosphatase 180 H (42-121) IU/L Ammonia (11-35) umol/L Total Protein 8.3 H (6.7-8.2) g/dl Albumin 2.8 L (3.2-5.5) g/dl Globulin 5.5 Albumin/Globulin Ratio 0.51 Urine Color (YELLOW) Urine Appearance (CLEAR) Urine pH (5.0-9.0) Ur Specific [place] (1.005-1.030) Urine Protein (NEGATIVE) Urine Glucose (UA) (NEGATIVE) Urine Ketones (NEGATIVE) Urine Occult Blood (NEGATIVE) Urine Nitrite (NEGATIVE) Urine Bilirubin (NEGATIVE) Urine Urobilinogen (0.2-1.0) mg/dL Ur Leukocyte Esterase (NEGATIVE) Urine RBC /HPF Urine WBC (0-5/HPF) /HPF Ur Epithelial Cells (NOT SEEN) /HPF Amorphous Sediment (NOT SEEN) /HPF Urine Bacteria (0-FEW/HPF) /HPF Urine Mucus (NOT SEEN) /LPF Urine Opiates Screen (NEGATIVE) Ur Oxycodone Screen (NEGATIVE) Urine Methadone Screen (NEGATIVE) Ur Barbiturates Screen (NEGATIVE) U Tricyclic Antidepress (NEGATIVE) Ur Phencyclidine Scrn (NEGATIVE) Ur Amphetamine Screen (NEGATIVE) U Methamphetamines Scrn (NEGATIVE) Urine MDMA Screen (NEGATIVE) U Benzodiazepines Scrn (NEGATIVE) Urine Cocaine Screen (NEGATIVE) U Marijuana (THC) Screen (NEGATIVE) 01/30/19 01/30/19 01/30/19 Range/Units 15:12 15:52 15:52 WBC (5.0-10.0) 10^3/uL RBC (4.6-6.2) 10^6/uL Hgb (14.0-18.0) g/dL Hct (40.0-54.0) % MCV (80-100) fL MCH (27.0-34.0) pg MCHC (33.0-35.0) g/dL Plt Count (150-450) 10^3/uL Neut % (Auto) (42.2-75.2) % Lymph % (Auto) (20.5-50.1) % [place] % (Auto) (2-8) % Eos % (Auto) (1.0-3.0) % Baso % (Auto) (0.0-1.0) % Sodium (135-145) mmol/L Potassium (3.6-5.0) mmol/L Chloride (101-111) mmol/L Carbon Dioxide (21.0-31.0) mmol/L Anion Gap BUN (7-18) mg/dL Creatinine (0.6-1.3) mg/dL Est Cr Clr Drug Dosing mL/min Estimated GFR (MDRD) BUN/Creatinine Ratio Glucose (74-105) mg/dL Lactic Acid (0.5-2.2) mmol/L Calcium (8.4-10.2) mg/dl Total Bilirubin (0.2-1.0) mg/dL AST (10-42) IU/L ALT (10-60) IU/L Alkaline Phosphatase (42-121) IU/L Ammonia 96 H (11-35) umol/L Total Protein (6.7-8.2) g/dl Albumin (3.2-5.5) g/dl Globulin Albumin/Globulin Ratio Urine Color Dark yellow (YELLOW) Urine Appearance Slightly cloudy (CLEAR) Urine pH 6.5 (5.0-9.0) Ur Specific [place] 1.025 (1.005-1.030) Urine Protein Trace H (NEGATIVE) Urine Glucose (UA) Negative (NEGATIVE) Urine Ketones 15 H (NEGATIVE) Urine Occult Blood Large H (NEGATIVE) Urine Nitrite Negative (NEGATIVE) Urine Bilirubin Moderate H (NEGATIVE) Urine Urobilinogen >=8.0 H (0.2-1.0) mg/dL Ur Leukocyte Esterase Negative (NEGATIVE) Urine RBC >100 H /HPF Urine WBC 0-5 (0-5/HPF) /HPF Ur Epithelial Cells Rare (NOT SEEN) /HPF Amorphous Sediment Rare (NOT SEEN) /HPF Urine Bacteria Rare (0-FEW/HPF) /HPF Urine Mucus Many H (NOT SEEN) /LPF Urine Opiates Screen Negative (NEGATIVE) Ur Oxycodone Screen Negative (NEGATIVE) Urine Methadone Screen Negative (NEGATIVE) Ur Barbiturates Screen Positive H (NEGATIVE) U Tricyclic Antidepress Negative (NEGATIVE) Ur Phencyclidine Scrn Negative (NEGATIVE) Ur Amphetamine Screen Negative (NEGATIVE) U Methamphetamines Scrn Negative (NEGATIVE) Urine MDMA Screen Negative (NEGATIVE) U Benzodiazepines Scrn Negative (NEGATIVE) Urine Cocaine Screen Negative (NEGATIVE) U Marijuana (THC) Screen Negative (NEGATIVE) - Re-Assessments/Exams Free Text/Narrative Re-Assessment/Exam: 01/30/19 16:34 The patient was advised of the examination and lab results. The patient was encouraged to stop drinking alcohol and avoid any Tylenol use. The patient was also encouraged to follow-up with his primary care facility for continued evaluation and management. Departure - Departure Time of Disposition: 16:35 Disposition: Home, Self-Care 01 Condition: Fair Clinical Impression: Elevated liver enzymes Gastritis Qualifiers: Gastritis type: unspecified gastritis Chronicity: acute Gastritis bleeding: without bleeding Qualified Code(s): K29.00 - Acute gastritis without bleeding - Discharge Information *PRESCRIPTION DRUG MONITORING PROGRAM REVIEWED*: Not Applicable *COPY OF PRESCRIPTION DRUG MONITORING REPORT IN PATIENT AMNA: Not Applicable Instructions: Gastritis, Adult, [id number] Forms: ED Department Discharge Care Plan Goals: The patient was advised of the examination and lab results. The patient was encouraged to stop drinking alcohol and avoid any Tylenol use. The patient was also encouraged to follow-up with his primary care facility (either in [place] or with a local health care facility) for continued evaluation and management. If the patient has any additional symptoms or concerns, the patient should either return to the emergency department or visit his primary care facility. - My Orders Last 24 Hours: My Active Orders 01/30/19 15:12 CULTURE BLOOD [BC] Stat - Assessment/Plan Last 24 Hours: My Active Orders 01/30/19 15:12 CULTURE BLOOD [BC] Stat
[2019-01-30 15:39] LABS: ANION GAP 20.3; CHLORIDE,CL 97 mmol/L (101-111); SODIUM,NA 135 mmol/L (135-145)
== END 2019-01-30 16:44 | disposition home or self-care (01) ==
LOC: DL.ED 14:27
DX: K29.00 Acute gastritis without bleeding (principal); R94.5 Abnormal results of liver function studies; I10 Essential (primary) hypertension; Z79.899 Other long term (current) drug therapy
CPT/HCPCS: 36415; 80053; 80305-QW; 81001; 82140; 82272; 83605; 85025; 87040; 99283